=== PATIENT | male | born 1995 | race Caucasian/White ===

== ENCOUNTER 2020-03-27 09:42 | Emergency (ER) | payer BC ==
[~2020-03-27] VITALS: Ht 182.9 cm; Wt 74.8 kg
[2020-03-27 09:42] VITALS: BP_SYST 140
[2020-03-27] MEDS ORDERED: KETOROLAC TROMETHAMINE 30 MG VIAL IM ONE (10:00)
[2020-03-27 10:57] VITALS: BP_SYST 140
== END 2020-03-27 11:01 | disposition home or self-care (01) ==
LOC: SED 09:42
DX: S83.8X1A Sprain of other specified parts of right knee, initial encounter (principal); F12.90 Cannabis use, unspecified, uncomplicated; X50.1XXA Overexertion from prolonged static or awkward postures, initial encounter; Y93.67 Activity, basketball; Y92.89 Other specified places as the place of occurrence of the external cause; Y99.8 Other external cause status
CPT/HCPCS: 73564; 96374; 99283; J1885